=== PATIENT | female | born 1955 | race Caucasian/White ===

== ENCOUNTER → 2017-09-03 | Outpatient (CLI) | payer OTHER, MEDICARE ==
[~2017-09-03] MED LIST: CELEBREX 200 M200 M1 PO; CYMBALTA60 MG PO; GRALISE1 EACH PO; LANSOPRAZOLE30 MG PO; LEVOTHYROXIN0.075 MG PO; LOPRESSOR50 PO; MAXZIDE-25 MG1 EACH PO; ROBAXIN 750 MG750 M1 PO; TRAMADOL 50 MG50 MG PO; TRAZODONE HCL100 MG PO
== END ==
LOC: M.RAD 11:09
DX: M19.072 Primary osteoarthritis, left ankle and foot (principal); M79.672 Pain in left foot

== ENCOUNTER → 2020-02-16 | Outpatient (CLI) | payer OTHER, MEDICARE ==
[~2020-02-16] VITALS: Ht 149.9 cm; Wt 93.4 kg
[~2020-02-16] MED LIST changes: +ALLOPURINOL 10100 M1 PO; +LIPITOR20 MG PO; +MAXZIDE 75-501 EACH PO; +METFORMIN HCL500 M3 PO; +NEURONTIN300 MG PO; +PROTONIX40 M2 PO; +ROBAXIN 750 MG750 MG PO; +SYNTHROID75 MCG PO; +ZYRTEC10 M4 PO
[2020-02-16 10:16] LABS: HEMATOCRIT 33.6 % (37.0-47.0); HEMOGLOBIN 11.4 gm/dL (12.0-15.0); MCH 28.3 pg (26.0-34.0); MCHC 33.8 g/dL (28.0-37.0); MCV 83.6 fL (80.0-100.0); MPV 7.5 fl. (7.2-11.1); RBC 4.02 mil/uL (4.20-5.00); RDW-CV 14.7 % (10.5-14.5); WBC 5.9 thou/uL (4.0-11.0)
[2020-02-16 10:26] LABS: APTT 22.1 Seconds (25.0-31.3); PROTIME 10.1 Seconds (9.20-11.50)
[2020-02-16 10:27] VITALS: BP 137/50
[2020-02-16 10:36] LABS: ANION GAP 10 mmol/L (7-16); BUN 13 mg/dL (7-18); CHLORIDE 102 mmol/L (98-107); CO2 28 mmol/L (21-32); GLUCOSE 102 mg/dL (70-99); POTASSIUM 3.9 mmol/L (3.5-5.1); SODIUM 140 mmol/L (136-145)
[2020-02-16 10:40] LABS: ALBUMIN 3.9 g/dL (3.4-5.0); ALKALINE PHOSPHATASE 106 U/L (46-116); CHOLESTEROL 130 mg/dL (<200); HDL CHOLESTEROL 43 mg/dL (>40); LDL CHOLESTEROL 66 mg/dL (<100); SERUM ASSESSMENT Clear; SGOT 20 U/L (15-37); SGPT 24 U/L (30-65); TOTAL BILIRUBIN 0.3 mg/dL (<0.1-1.0); TOTAL PROTEIN 7.4 g/dL (6.4-8.2); TRIGLYCERIDE 108 mg/dL (<150); VLDL 22 mg/dL (<40)
[2020-02-16 12:45] VITALS: BP 167/77
[2020-02-16 13:00] VITALS: BP 178/76
[2020-02-16 13:15] VITALS: BP 177/74
[2020-02-16 13:30] VITALS: BP 166/73
--- NOTE | 2020-02-16 16:03 | EKG ---
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
--- NOTE | 2020-02-25 08:57 | CARD ---
[address] [address] CARDIAC CATH REPORT Name: [facility]ALLIE LEMOS [id number] Ad[facility]: 02/16/20 Attend Phys: Noé Lee MD Discharge: Date of : 59 Report #: [id number] THIS REPORT FOR: //name// cc: Lb Patel Vincent R. DO ~ ADDENDUM APPROVED REPORT Study performed: 02/16/2020 11:18:20 Patient Details Patient Status: Out-Patient Room #: The patient is a 64 year-old female Event Personnel Noé Lee Information Security Manager, Alhaji Tejada RN RN, Cat Mayes RTR Scrub, Bc Iyer RTR Monitor Procedures Performed Left Heart Cath w/or w/o Coronaries [id number] [facility] Hemostasis w/ Angioseal Indication Dyspnea, Positive stress test, Chest pain Admission/Lab Medications/Medications given during procedure Lidocaine Subcut 20 ml Procedure Narrative The patient was brought electively to the Cardiac Catheterization Laboratory and was prepped and draped in a sterile manner. The right femoral was infiltrated with 2% Lidocaine subcutaneous anesthesia. A Hancock 6 FR sheath was inserted into the right femoral artery. Coronary angiography was performed using coronary diagnostic catheters. The right coronary system was accessed and visualized with a Diagnostic 6Fr JR4 catheter. The left coronary system was accessed and visualized with a Diagnostic 6Fr JL4 catheter. The left ventricle was accessed and visualized with a Diagnostic 6Fr Angled Pigtail catheter. The patient tolerated the procedure well and there were no complications associated with the procedure. There was no hematoma. Intraoperative Conscious Sedation Sedation start time: 1146 Case end Time: [address] [place] [address] CARDIAC CATH REPORT Name: KALLIE LEMOS Room: [facility]#: [id number] Admission: 02/16/20 Attend Phys: Noé Lee MD Discharge: Date of : 59 Report #: [id number] Fluoro Time: 3.1 minutes Dose: DAP 89137 cGycm2 944.37 mGy Contrast Type and Amount: Visipaque 100 ml Coronary Angiography The patient's coronary anatomy is right dominant. Diagnostic Cath Left Main The left main coronary artery is basically a common ostium. No disease noted. LAD The left anterior descending coronary artery is normal in its proximal mid and distal portion. The distal LAD tapers to a fairly small caliber without obvious disease. Diagonal 1 A large first diagonal branch is normal. Diagonal 2 A small second diagonal branch is normal. Circumflex The circumflex coronary artery is normal in its proximal mid and distal portion. OM1 The first obtuse marginal branch is normal. OM2 The second obtuse marginal branch is normal. OM3 The third obtuse marginal branch is normal. Right Coronary The right coronary artery is normal in its proximal mid and distal portion. R PDA The right PDA is normal. Hemodynamics The aortic pressure is 170/71 mmHg with a mean of 96 mmHg. The left ventricular pressure is 171/13 mmHg with a mean of mmHg. The left ventricular end diastolic pressure is 29 mmHg. Conclusion 1. Normal coronary arteries. 2. Normal LV systolic function. 3. Moderately elevated left ventricular end-diastolic pressure consistent with diastolic dysfunction. Recommendations 1. Continue medical management. <ELECTRONICALLY SIGNED> By: Noé Lee MD, FACC 02/25/20 0857 0857 [id number] Lee MD, FACC /INF
== END ==
LOC: M.CL 09:15
PROVIDERS: ATTEND Internal Medicine Cardiovascular Disease
DX: R07.9 Chest pain, unspecified (principal); R06.00 Dyspnea, unspecified; I10 Essential (primary) hypertension; I48.0 Paroxysmal atrial fibrillation; I47.1 Supraventricular tachycardia; J45.909 Unspecified asthma, uncomplicated; E66.01 Morbid (severe) obesity due to excess calories; E03.9 Hypothyroidism, unspecified; Z79.899 Other long term (current) drug therapy; Z90.710 Acquired absence of both cervix and uterus; Z98.890 Other specified postprocedural states; Z82.49 Family history of ischemic heart disease and other diseases of the circulatory system; Z68.41 Body mass index [BMI] 40.0-44.9, adult; Z88.8 Allergy status to other drugs, medicaments and biological substances

== ENCOUNTER → 2020-02-22 | Outpatient (CLI) | payer OTHER, MEDICARE | LOC: M.ULTRA 11:47 | PROVIDERS: ATTEND Registered Nurse | DX: R10.31 Right lower quadrant pain (principal); M79.661 Pain in right lower leg; R22.41 Localized swelling, mass and lump, right lower limb ==

== ENCOUNTER → 2020-10-24 | Outpatient (CLI) | payer OTHER, MEDICARE | LOC: M.ULTRA 10:22 | PROVIDERS: ATTEND Family Medicine | DX: Z80.41 Family history of malignant neoplasm of ovary (principal) ==

== ENCOUNTER 2021-07-25 10:20 | Emergency (ER) | payer OTHER, MEDICARE ==
[~2021-07-25] VITALS: Ht 152.4 cm; Wt 94.3 kg
[2021-07-25] MEDS ORDERED: COZAAR 25 MG TA25 M1 PO (10:52)
[2021-07-25] MEDS ORDERED: VENTOLIN HFA 1818 GM INH (12:52)
[2021-07-25] MEDS ORDERED: PREDNISONE 20 M20 M1 PO (12:52)
[2021-07-25] MEDS ORDERED: ZPAK PO (12:52)
[2021-07-25 13:19] VITALS: BP 147/67
--- NOTE | 2021-07-26 11:01 | EKG ---
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1955 Requested By: Landry Borja Order Number: [id number] MD: Robert Hazel Measurements Intervals [place] Rate: 68 P: -3 GA: 171 QRS: -13 QRSD: 88 T: 15 QT: 397 QTc: 423 Interpretive Statements Sinus rhythm Low voltage, precordial leads LVH by voltage Borderline T abnormalities, inferior leads Baseline wander in lead(s) II,III,aVR,aVL,aVF Compared to ECG 02/16/2020 10:19:44 Left ventricular hypertrophy now present Electronically Signed On 07-26-2021 11:00:59 LOG CHECK SCALER by Robert Hazel [email or web address] <ELECTRONICALLY SIGNED> By: Robert Hazel MD, FACC 07/26/21 1100 1056 1056 Robert Hazel MD, [facility] /EPI
== END 2021-07-25 13:23 | disposition home or self-care (01) ==
LOC: M.ERS 10:20
DX: J40 Bronchitis, not specified as acute or chronic (principal); I10 Essential (primary) hypertension; Z96.651 Presence of right artificial knee joint; Z98.890 Other specified postprocedural states; Z90.710 Acquired absence of both cervix and uterus; Z98.51 Tubal ligation status; Z79.899 Other long term (current) drug therapy; Z88.8 Allergy status to other drugs, medicaments and biological substances